=== PATIENT | male | born 1995 | race Caucasian/White ===

== ENCOUNTER 2023-09-28 14:01 | Emergency (ER) | payer SELFPAY ==
[2023-09-28] MEDS ORDERED: LORazepam 2 MG/ML VIAL ONE (14:30)
[2023-09-28 14:38] LABS: Absolute Basophils 0.1 K/uL (0-0.5); Absolute Eosinophils 0.1 K/uL (0-0.5); Absolute Lymphocytes (CBC) 1.5 K/uL (0.7-4.9); Absolute Monocytes 0.6 K/uL (0.1-1.3); Absolute Neutrophil 8.7 K/uL (1.8-8.0); Basophils % 1.3 % (0-1.3); Eosinophils % 0.7 % (0-4.4); Hematocrit 41.3 % (39.6-49.0); Hemoglobin 13.9 g/dL (13.6-17.9); Lymphocytes % 13.8 % (15.3-44.8); MCH 40.2 pg (27.0-35.0); MCHC 33.8 g/dL (32.0-36.0); MCV 118.9 fL (80-100); MPV 7.9 fL (7.6-11.3); Monocytes % 5.4 % (3.3-12.3); Neutrophils % 78.8 % (41.7-73.7); Platelets 242 thou/uL (152-406); RBC Red Blood Cell Count 3.47 M/uL (4.33-5.43); Red Cell Distribution Width 18.8 % (12.1-15.2)
[2023-09-28 14:54] LABS: PT Prothrombin Time 11.7 SECONDS (9.4-12.5); PTT, Activated Partial Thromb 30.4 SECONDS (24.3-36.9); Protime INR 1.07
[2023-09-28 15:06] LABS: Blood Morphology Comment NOT SEEN (NOT SEEN); Platelet Estimate ADEQ; White Blood Cell Scan OK (OK)
[2023-09-28 15:07] LABS: ALT/SGPT 236 U/L (16-61); AST/SGOT 228 U/L (15-37); Albumin 3.7 g/dL (3.4-5.0); Albumin/Globulin Ratio 0.9 (1.1-1.8); Alkaline Phosphatase 126 U/L (45-117); Anion Gap 11.9 mEq/L (5.0-15.0); BUN Blood Urea Nitrogen 6 mg/dL (7-18); Bicarbonate 25 mEq/L (21-32); Bilirubin Direct 0.7 mg/dL (0-0.2); Bilirubin Indirect, Calculated 0.7 mg/dL (0.2-0.8); Bilirubin Total 1.4 mg/dL (0.2-1.0); Globulin 3.9 g/dL (2.3-3.5); Glomerular Filtration Rate 142 ml/min (=/>90); Glucose Level 94 mg/dL (74-106); Magnesium 1.6 mg/dL (1.6-2.4); NT PRO-BNP 21 pg/mL (<125); Potassium 3.9 mEq/L (3.5-5.1); Protein, Total 7.6 g/dL (6.4-8.2); Sodium Level 138 mEq/L (136-145); Troponin High Sensitivity 4.9 pg/mL (<58.9)
[2023-09-28 15:10] LABS: Specific Gravity 1.017 (1.005-1.030); Sqamous Epithelial <5 /HPF (None Seen); Urine Bacteria None Seen /HPF (<20); Urine Bilirubin NEGATIVE (Negative); Urine Blood Negative (Negative); Urine Clarity Clear (Clear); Urine Color Yellow (Yellow); Urine Culture Reflex Order NOT NEEDED; Urine Glucose NEGATIVE (Negative); Urine Ketones 2+ (Negative); Urine Microscopic Reflex YN ORDER UMIC; Urine Mucus Slight /HPF (None Seen); Urine Nitrite NEGATIVE (Negative); Urine Protein 1+ (Negative); Urine RBC <5 /HPF (None Seen); Urine Urobilinogen 2+ (Normal); Urine WBC <5 /HPF (<5); Urine pH 6.5 (5.0-7.0)
[2023-09-28] MEDS ORDERED: MORPHINE 4 MG/ML SYR ONE (15:11)
--- NOTE | 2023-09-28 15:20 | RAD REPORT ---
EXAM DESCRIPTION: Sofiya Single View09/28/2023 2:45 pm CLINICAL HISTORY: Chest pain COMPARISON: none FINDINGS: The lungs appear clear of acute infiltrate. The heart is normal size IMPRESSION: No acute abnormalities displayed
[2023-09-28 15:24] LABS: Barbiturates NEGATIVE (NEGATIVE); Benzodiazepines NEGATIVE (NEGATIVE); Cocaine NEGATIVE (NEGATIVE); METHAMPHETAM NEGATIVE (NEGATIVE); Methadone NEGATIVE (NEGATIVE); Opiates NEGATIVE (NEGATIVE); Phencyclidine NEGATIVE (NEGATIVE); THC Cannibis NEGATIVE (NEGATIVE)
--- NOTE | 2023-09-28 16:25 | RAD REPORT ---
EXAM DESCRIPTION: CT - Chest Abdomen Pelvis W Cont - 09/28/2023 3:48 pm CLINICAL HISTORY: Chest and abdominal pain COMPARISON: none TECHNIQUE: Computed axial tomography of the chest, abdomen and pelvis was obtained. 100 cc Isovue-30 0 was administered intravenously. Oral contrast was not requested. This limits evaluation of bowel. All CT scans are performed using dose optimization technique as appropriate and may include automated exposure control or mA/KV adjustment according to patient size. FINDINGS: The lungs are clear No mediastinal or hilar lymphadenopathy. No pleural effusion. No pericardial effusion. Liver is enlarged with marked fatty infiltration. The spleen, pancreas, adrenals and right kidney unremarkable. Small left renal cyst. No evidence of diverticulitis IMPRESSION: Hepatomegaly with fatty infiltration
[2023-09-28] MEDS ORDERED: LABETALOL 20 MG/4ML SYRINGE IV ONE (17:14)
[2023-09-28] MEDS ORDERED: KETOROLAC 30 MG/ML INJ ONE (17:14)
[2023-09-28] MEDS ORDERED: NA CHLORIDE 0.9% 1,000 ML ONE (17:15)
--- NOTE | 2023-09-28 18:14 | ER ---
Nurse's Notes [facility] Name: Jaziel Isabel Age: 28 yrs Sex: Male : 1995 Arrival Date: 09/28/2023 Time: 14:01 Bed 13 Private MD: Diagnosis: Chest pain, unspecified;Alcohol abuse with intoxication;Hypertensive heart disease without heart failure Presentation: 09/27 14:10 Chief complaint: Patient states: c/o chest pain and shortness of breath starting about al5 an hour ago. was discharged from [facility] with a lung infection and was prescribed steroids. 324 asa given area captain by [facility]. hx of etoh abuse last drink at around 2300 last night. Coronavirus screen: At this time, the client does not indicate any symptoms associated with coronavirus-19. Ebola Screen: No symptoms or risks identified at this time. Initial Sepsis Screen: Does the patient meet any 2 criteria? HR > 90 bpm. Does the patient have a suspected source of infection? No. Patient's initial sepsis screen is negative. Risk Assessment: Do you want to hurt yourself or someone else? Patient reports no desire to harm self or others. Onset of symptoms was September 28, 2023 at 13:00. Care prior to arrival: Medication(s) given: ASA, 81 mg, x 4. 14:10 Method Of Arrival: EMS: [facility] al5 14:10 Method Of Arrival: EMS: [facility] al5 14:10 Acuity: JAGJIT 2 al5 Triage Assessment: 14:13 General: Appears uncomfortable, Behavior is cooperative, restless, Smells of alcohol. al5 Pain: Complains of pain in chest Pain currently is 10 out of 10 on a pain scale. EENT: No deficits noted. No signs and/or symptoms were reported regarding the EENT system. Neuro: Level of Consciousness is awake, alert, obeys commands, Oriented to person, place, time, situation. Neuro: Speech is normal, Facial symmetry appears normal. Cardiovascular: Reports chest pain, shortness of breath. Cardiovascular: Capillary refill < 3 seconds Patient's skin is warm and dry. Rhythm is sinus tachycardia. Respiratory: Reports shortness of breath at rest on exertion Airway is patent Trachea midline Respiratory effort is even, unlabored, Respiratory pattern is regular, symmetrical. GI: No deficits noted. No signs and/or symptoms were reported involving the gastrointestinal system. : No deficits noted. No signs and/or symptoms were reported regarding the genitourinary system. Derm: Skin is intact. Historical: - Allergies: 14:13 No Known Allergies; al5 - PMHx: 14:13 Alcoholism; al5 - Immunization history:: Adult Immunizations up to date. - Infectious Disease History:: Denies. - Social history:: Smoking status: Patient reports the use of cigarette tobacco products, smokes one-half pack cigarettes per day. Screenin:15 [facility] ED Fall Risk Assessment (Adult) History of falling in the last 3 months, al5 including since admission No falls in past 3 months (0 pts) Confusion or Disorientation No (0 pts) Intoxicated or Sedated No (0 pts) Impaired Gait No (0 pts) Mobility Assist Device Used No (0 pt) Altered Elimination No (0 pt) Score/Fall Risk Level 0 - 2 = Low Risk Oriented to surroundings, Maintained a safe environment, Hourly rounding (assess needs \T\ fall precautionary measures) done. Abuse screen: Denies threats or abuse. Denies injuries from another. Nutritional screening: No deficits noted. Tuberculosis screening: No symptoms or risk factors identified. Assessment: 14:15 General: see triage note. al5 15:30 Reassessment: No changes from previously documented assessment. Patient and/or family al5 updated on plan of care and expected duration. Pain level reassessed. Patient is alert, oriented x 3, equal unlabored respirations, skin warm/dry/pink. Patient states symptoms have not improved. 16:46 Reassessment: Patient appears in no apparent distress at this time. No changes from al5 previously documented assessment. Patient and/or family updated on plan of care and expected duration. Pain level reassessed. Patient is alert, oriented x 3, equal unlabored respirations, skin warm/dry/pink. 17:50 Reassessment: Patient appears in no apparent distress at this time. No changes from al5 previously documented assessment. Patient and/or family updated on plan of care and expected duration. Pain level reassessed. Patient is alert, oriented x 3, equal unlabored respirations, skin warm/dry/pink. Vital Signs: 14:10 BP 145 / 102; Pulse 116; Resp 17; Temp 98.2(TE); Pulse Ox 95% on R/A; Weight 111.58 kg; al5 Height 5 ft. 8 in. ; Pain 10/10; 14:51 BP 158 / 116; Pulse 116; Resp 20; Pulse Ox 100% on R/A; Pain 10/10; al5 15:30 BP 172 / 117; Pulse 119; Resp 19; Pulse Ox 100% on R/A; Pain 10/10; al5 16:35 BP 139 / 105; Pulse 115; Resp 18; Pulse Ox 100% on R/A; al5 17:00 BP 156 / 111; Pulse 114; Resp 18; Pulse Ox 96% on R/A; Pain 8/10; al5 17:30 BP 148 / 112; Pulse 94; Resp 18; Pulse Ox 98% on R/A; Pain 8/10; al5 14:10 Body Mass Index 37.40 (111.58 kg, 172.72 cm) al5 14:10 Pain Scale: Adult al5 14:51 Pain Scale: Adult al5 15:30 Pain Scale: Adult al5 17:00 Pain Scale: Adult al5 17:30 Pain Scale: Adult al5 ED Course: 14:09 Patient arrived in ED. ll1 14:10 Liliana Jordan, SAKINA is Primary Nurse. al5 14:10 Greg Knight PA is PHCP. cp 14:10 Cameron Serrano MD is Attending Physician. cp 14:13 Triage completed. al5 14:15 Arm band placed on right wrist. Patient placed in the treatment room, on a stretcher, al5 in view of staff members. 14:16 Patient has correct armband on for positive identification. Bed in low position. Call al5 light in reach. Side rails up X2. Adult w/ patient. 14:16 No provider procedures requiring assistance completed. al5 14:27 Acetaminophen Sent. al5 14:27 ETOH Level Sent. al5 14:27 Ptt, Activated Sent. al5 14:27 Salicylate Sent. al5 14:27 Basic Metabolic Panel Sent. al5 14:27 CBC with Diff Sent. al5 14:28 LFT's Sent. al5 14:28 Magnesium Sent. al5 14:28 NT PRO-BNP Sent. al5 14:28 PT-INR Sent. al5 14:28 Troponin HS Sent. al5 14:37 Provided Education on: medication administration. al5 14:37 Initial lab(s) drawn, by me, sent to lab. EKG done, by ED staff, reviewed by Greg EASLEY. Inserted saline lock: 20 gauge in right antecubital area, using aseptic technique. Blood collected. 14:47 XRAY Chest (1 view) In Process Unspecified. EDMS 15:02 Urinalysis w/ reflexes Sent. al5 15:02 Urine Drug Screen Sent. al5 15:50 CT Chest, Abdomen, Pelvis - W/Contrast In Process Unspecified. EDMS 18:41 IV discontinued, intact, bleeding controlled, No redness/swelling at site. Pressure al5 dressing applied. 18:43 Notified Nurse Practitioner and/or Physician Cook Box Filler of pain level, verbal order for al5 toradol 15 mg IV once ordered. read back completed and confirmed. Administered Medications: 14:12 CANCELLED (Physician Discretion): diazepam5 mg IVP once cp 14:36 Drug: Ativan IVP 1 mg IVP once Route: IVP; Site: right antecubital; al5 17:11 Follow up: Response: No adverse reaction al5 15:13 Drug: morphine IVP or IV 4 mg IVP once over 4 mins Route: IVP; Infused Over: 4 mins; rs5 Site: right antecubital; 17:10 Follow up: Response: No adverse reaction al5 17:23 Drug: Labetalol IV 10 mg IV at calculated rate once over 2 mins; For SBP greater than al5 140. Hold for HR less than 60, notify provider. Route: IV; Rate: calculated rate; Infused Over: 2 mins; Site: right antecubital; 18:43 Follow up: Response: No adverse reaction al5 17:23 Drug: NS 0.9% IV 1000 ml IV at 1 bolus Per protocol; 1000 mL bolus Route: IV; Rate: 1 al5 bolus; Site: right antecubital; 18:42 Follow up: Response: No adverse reaction; IV Intake: 1000ml al5 Medication: 14:36 VIS not applicable for this client. al5 Intake: 18:42 IV: 1000ml; Total: 1000ml. al5 Outcome: 18:13 Discharge ordered by MD. cp 18:41 Discharged to home ambulatory, with family, al5 18:41 Condition: good 18:41 Discharge instructions given to patient, Instructed on discharge instructions, follow up and referral plans. medication usage, rehab resources Demonstrated understanding of instructions, follow-up care, medications, rehab resources 18:42 Patient left the ED. al5 Signatures: Dispatcher [employer] EDMS Greg Knight PA PA cp Lewis, Lynsay RN RN ll1 Tay Turner RN RN rs5 Liliana Jordan RN RN al5
--- NOTE | 2023-09-28 18:14 | EDPHYS ---
Physician Documentation [facility] Name: Jaziel Isbael Age: 28 yrs Sex: Male : 1995 Arrival Date: 09/28/2023 Time: 14:01 Bed 13 Private MD: ED Physician Cameron Serrano HPI: 09/27 14:15 This 28 yrs old Male presents to ER via EMS with complaints of Chest Pain, Shortness Of cp Breath. 14:15 The patient or guardian reports chest pain that is located primarily in the anterior cp chest wall, bilaterally. The pain does not radiate. 14:15 Associated signs and symptoms: Pertinent positives: lower extremity pain, shortness of cp breath, Pertinent negatives: abdominal pain, cough. The chest pain is described as aching. Duration: The patient or guardian reports a single episode, that is still ongoing. Historical: - Allergies: 14:13 No Known Allergies; al5 - PMHx: 14:13 Alcoholism; al5 - Immunization history:: Adult Immunizations up to date. - Infectious Disease History:: Denies. - Social history:: Smoking status: Patient reports the use of cigarette tobacco products, smokes one-half pack cigarettes per day. ROS: 14:20 Cardiovascular: Positive for chest pain, Negative for edema, palpitations, cp 14:20 Eyes: Negative for injury, pain, redness, and discharge, cp 14:20 Constitutional: Negative for body aches, chills, fever, poor PO intake, 14:20 ENT: Negative for drainage from ear(s), ear pain, sore throat, difficulty swallowing, difficulty handling secretions, 14:20 Respiratory: Positive for shortness of breath, 14:20 Abdomen/GI: Negative for abdominal pain, vomiting, diarrhea, constipation, 14:20 Neuro: Negative for altered mental status, dizziness, headache, syncope, near syncope, weakness, 14:20 All other systems are negative, Exam: 14:10 ECG was reviewed by the Attending Physician. cp 14:25 Constitutional: The patient appears in no acute distress, alert, awake, cp non-diaphoretic, non-toxic, well developed, well nourished, uncomfortable, 14:25 Head/Face: Normocephalic, atraumatic. cp 14:25 Eyes: Periorbital structures: appear normal, Conjunctiva: normal, no exudate, no injection, Sclera: no appreciated abnormality, Lids and lashes: appear normal, bilaterally, 14:25 ENT: External ear(s): are unremarkable, Nose: is normal, Mouth: Lips: moist, Oral mucosa: pink and intact, moist, Posterior pharynx: Airway: no evidence of obstruction, patent, 14:25 Chest/axilla: Inspection: normal, Palpation: is normal, no crepitus, no tenderness, 14:25 Cardiovascular: Rate: tachycardic, Rhythm: regular, Edema: is not appreciated, JVD: is not appreciated, 14:25 Respiratory: the patient does not display signs of respiratory distress, Respirations: labored breathing, that is mild, intercostal retractions, are absent, Breath sounds: decreased breath sounds, that are mild, throughout, stridor, is not appreciated, wheezing: is not appreciated, 14:25 Abdomen/GI: Inspection: abdomen appears normal, Bowel sounds: active, all quadrants, Palpation: soft, in all quadrants, mild abdominal tenderness, in all quadrants, 14:25 Back: CVA tenderness, is absent, 14:25 Neuro: Orientation: to person, place \T\ time. Mentation: is normal, Motor: moves all fours, Sensation: no obvious gross deficits, Vital Signs: 14:10 BP 145 / 102; Pulse 116; Resp 17; Temp 98.2(TE); Pulse Ox 95% on R/A; Weight 111.58 kg; al5 Height 5 ft. 8 in. ; Pain 10/10; 14:51 BP 158 / 116; Pulse 116; Resp 20; Pulse Ox 100% on R/A; Pain 10/10; al5 15:30 BP 172 / 117; Pulse 119; Resp 19; Pulse Ox 100% on R/A; Pain 10/10; al5 16:35 BP 139 / 105; Pulse 115; Resp 18; Pulse Ox 100% on R/A; al5 17:00 BP 156 / 111; Pulse 114; Resp 18; Pulse Ox 96% on R/A; Pain 8/10; al5 17:30 BP 148 / 112; Pulse 94; Resp 18; Pulse Ox 98% on R/A; Pain 8/10; al5 14:10 Body Mass Index 37.40 (111.58 kg, 172.72 cm) al5 14:10 Pain Scale: Adult al5 14:51 Pain Scale: Adult al5 15:30 Pain Scale: Adult al5 17:00 Pain Scale: Adult al5 17:30 Pain Scale: Adult al5 MDM: 14:10 Patient medically screened. 18:12 Data reviewed: vital signs, nurses notes, lab test result(s), EKG, radiologic studies, cp CT scan, plain films. 18:12 I considered the following discharge prescriptions or medication management in the emergency department Medications were administered in the Emergency Department. See MAR. Independent interpretation of the following test(s) in the Emergency Department EKG: See my EKG interpretation above. 09/27 14:12 Order name: Basic Metabolic Panel; Complete Time: 15:26 cp 09/27 15:26 Interpretation: Normal except: BUN 6; CRE 0.48. 09/27 14:12 Order name: CBC with Diff; Complete Time: 15:26 cp 09/27 16:28 Interpretation: Normal except: WBC 11.10; RBC 3.47; MCV 118.9; MCH 40.2; RDW 18.8; TRACIE% cp 78.8; LYM% 13.8; NEUT A 8.7. 09/27 14:12 Order name: LFT's; Complete Time: 15:26 cp 09/27 14:12 Order name: Magnesium; Complete Time: 15:26 cp 09/27 14:12 Order name: NT PRO-BNP; Complete Time: 15:26 cp 09/27 14:12 Order name: PT-INR; Complete Time: 15:02 cp 09/27 14:12 Order name: Troponin HS; Complete Time: 15:26 cp 09/27 14:12 Order name: Acetaminophen; Complete Time: 15:26 cp 09/27 14:12 Order name: ETOH Level; Complete Time: 15:02 cp 09/27 15:02 Interpretation: Reviewed. 09/27 14:12 Order name: Ptt, Activated; Complete Time: 15:02 cp 09/27 14:12 Order name: Salicylate; Complete Time: 15:26 cp 09/27 14:12 Order name: Urinalysis w/ reflexes; Complete Time: 15:26 cp 09/27 14:12 Order name: Urine Drug Screen; Complete Time: 15:26 cp 09/27 14:44 Order name: CBC Smear Scan; Complete Time: 15:26 EDMS 09/27 14:12 Order name: XRAY Chest (1 view); Complete Time: 15:26 cp 09/27 15:27 Order name: CT Chest, Abdomen, Pelvis - W/Contrast; Complete Time: 16:27 cp 09/27 14:12 Order name: EKG; Complete Time: 14:12 cp 09/27 14:12 Order name: Cardiac monitoring; Complete Time: 14:16 cp 09/27 14:12 Order name: EKG - Nurse/Tech; Complete Time: 14:16 cp 09/27 14:12 Order name: IV Saline Lock; Complete Time: 14:27 cp 09/27 14:12 Order name: Labs collected and sent; Complete Time: 14:27 09/27 14:12 Order name: O2 Per Protocol; Complete Time: 14:16 cp 09/27 14:12 Order name: O2 Sat Monitoring; Complete Time: 14:16 cp 09/27 14:12 Order name: Suicide Screening ([place]) cp EC:10 Rate is 122 beats/min. Rhythm is regular. MS interval is normal. QRS interval is cp normal. QT interval is normal. T waves are Inverted in lead aVR. Interpreted by me. Reviewed by me. Administered Medications: 14:12 CANCELLED (Physician Discretion): diazepam5 mg IVP once cp 14:36 Drug: Ativan IVP 1 mg IVP once Route: IVP; Site: right antecubital; al5 17:11 Follow up: Response: No adverse reaction al5 15:13 Drug: morphine IVP or IV 4 mg IVP once over 4 mins Route: IVP; Infused Over: 4 mins; rs5 Site: right antecubital; 17:10 Follow up: Response: No adverse reaction al5 17:23 Drug: Labetalol IV 10 mg IV at calculated rate once over 2 mins; For SBP greater than al5 140. Hold for HR less than 60, notify provider. Route: IV; Rate: calculated rate; Infused Over: 2 mins; Site: right antecubital; 18:43 Follow up: Response: No adverse reaction al5 17:23 Drug: NS 0.9% IV 1000 ml IV at 1 bolus Per protocol; 1000 mL bolus Route: IV; Rate: 1 al5 bolus; Site: right antecubital; 18:42 Follow up: Response: No adverse reaction; IV Intake: 1000ml al5 Disposition: 09/28 07:03 Co-signature as Attending Physician, Cameron Serrano MD I reviewed the patient's care rn provided by the Advanced Practice Provider and agree with the diagnosis and treatment plan. Disposition Summary: 09/28/23 18:13 Discharge Ordered Notes: Location: Home cp Problem: new cp Symptoms: have improved cp Condition: Stable cp Diagnosis - Chest pain, unspecified cp - Alcohol abuse with intoxication cp - Hypertensive heart disease without heart failure cp Followup: cp - With: Private Physician - When: 2 - 3 days - Reason: Recheck today's complaints Discharge Instructions: - Discharge Summary Sheet cp - Alcohol Intoxication cp - Nonspecific Chest Pain, Adult cp - Hypertension, Adult cp - Alcohol Abuse and Nutrition cp - Aspirin and Your Heart cp - Form - Blood Pressure Record Sheet cp - Alcohol Abuse and Dependence Information, Adult cp - How to Take Your Blood Pressure cp Forms: - Medication Reconciliation Form cp - Antibiotic Education cp - Prescription Opioid Use cp - Patient Portal Instructions cp - Leadership Thank You Letter cp Signatures: Dispatcher [employer] EDMS Cameron Serrano MD MD rn Page, Corey, PA PA cp Tay Turner, RN RN rs5 Liliana Jordan RN RN al5 Corrections: (The following items were deleted from the chart) 09/27 14:12 14:12 Diazepam IVP 5 mg IVP once ordered. cp cp 14:12 14:12 BASIC METABOLIC PANEL+C.LAB.BRZ ordered. EDMS EDMS 14:12 14:12 CBC+H.LAB.BRZ ordered. EDMS EDMS 14:12 14:12 HEPATIC FUNCTION+C.LAB.BRZ ordered. EDMS EDMS 14:12 14:12 MAGNESIUM+C.LAB.BRZ ordered. EDMS EDMS 14:12 14:12 PROBNP+C.LAB.BRZ ordered. EDMS EDMS 14:12 14:12 PROTIME (+INR)+COAG.LAB.BRZ ordered. EDMS EDMS 14:12 14:12 Troponin High Sensitivity+C.LAB.BRZ ordered. EDMS EDMS 14:12 14:12 ACETAMINOPHEN+C.LAB.BRZ ordered. EDMS EDMS 14:12 14:12 ETHANOL+C.LAB.BRZ ordered. EDMS EDMS 14:12 14:12 PTT, ACTIVATED+COAG.LAB.BRZ ordered. EDMS EDMS 14: 14:12 SALICYLATE+C.LAB.BRZ ordered. EDMS EDMS 14: 14:12 Urinalysis+U.LAB.BRZ ordered. EDMS EDMS 14: 14:12 URINE DRUG SCREEN+UC.LAB.BRZ ordered. EDMS EDMS
[2023-09-28 19:16] VITALS: BP 148/112; TEMP 98.2; O2SAT 98
== END 2023-09-28 18:42 | disposition home or self-care (01) ==
LOC: ER 14:01
DX: R07.89 Other chest pain (principal); F10.229 Alcohol dependence with intoxication, unspecified; I11.9 Hypertensive heart disease without heart failure
CPT/HCPCS: 36415; 71045; 71260; 74177; 80048; 80076; 80143; 80179; 80307; 81001; 82077; 83735; 83880; 84484; 85025; 85610; 85730; 93005; 96374; 96375; 99284; J7030; Q9967